=== PATIENT | male | born 1985 | race Caucasian/White ===

== ENCOUNTER 2017-08-31 03:09 | Emergency (ER) | payer SELFPAY ==
[~2017-08-31] VITALS: Ht 170.2 cm; Wt 77.1 kg
[2017-08-31 03:13] VITALS: BP 120/82
[2017-08-31] MEDS ORDERED: HYDROCODONE/APAP 5/325MG 1 EACH TABLET ONE (03:47)
--- NOTE | 2017-08-31 03:51 | NUR ---
XRAY AT BEDSIDE.
[2017-08-31] MEDS ORDERED: HYDROCODONE/APAP 5/325MG 1 EACH TABLET PO ONE (04:00)
== END 2017-08-31 04:43 | disposition home or self-care (01) ==
LOC: ER 03:12
DX: S60.911A Unspecified superficial injury of right wrist, initial encounter (principal); Z88.1 Allergy status to other antibiotic agents; Z60.2 Problems related to living alone; W20.8XXA Other cause of strike by thrown, projected or falling object, initial encounter; Y93.89 Activity, other specified; Y92.89 Other specified places as the place of occurrence of the external cause; Y99.8 Other external cause status
CPT/HCPCS: 73090-TC; 73110; A4606; Z7610